=== PATIENT | male | born 1975 | race Two or more races ===

== ENCOUNTER 2024-11-02 10:00 | Outpatient (RCR) | payer OTHER, MEDICAID, SELFPAY ==
--- NOTE | 2024-10-25 15:27 | PT.OIERPT ---
PT OP Initial Eval Patient Information Outpatient Physical Therapy Treatment Date: 10/25/24 Visit Reasons: Left knee pain Medical Diagnosis: Left Knee Pain Treatment Dx #1: Left Knee Pain Start of Care: 10/25/24 Date of Onset: 1 month ago Smoking Status Smoking Status: Never smoker Initial Assessment Subjective: Pt is a 49 y/o male reports of left medial knee pain (09/29) with clicking and popping after he started working out again ~ 1 month ago. Pt was running and heard a pop in his knee and it swell instantly. Xray negative no MRI has been done. Pt has limitation with squatting, kneeling, running, squatting, working out, work duties, and performing recreational activities. Objective: Left Knee AROM: 0 deg to 140 deg with pain Left Knee MMTs: grossly 4-/5 Left Hip MMTs: grossly 3+/5 Special Test (+) Ricardo (+) Thessaly Palpation: TTP medial joint line Assessment: Pt demonstrate left knee pain consistent with possible meniscal involvement leading to difficulty with ADLs. Pt will attempt physical therapy if pain persist Pt will be refer back to provider for further consultation. 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 Goals 1) Increase left knee AROM WNL in 6 wks to be abnle to perform work out routine 2) Increase left knee MMTs grossly to 4/5 in 6 wks to be able to perform squatting activities 3) Increase left hip MMTs grossly to 4-/5 in 6 wks to be able to perform recreational activities 4) Decrease knee pain to 2/10 in 6 wks to be able to perform stand more than 30 mins 5) Indep with HEP Treatment Plan 1) Manual Therapy 2) Therapeutic Activities 3) Therapeutic Exercises 4) Modalities (ice, heat) 5) Balance Training Frequency and Duration: 2 x wk for 6 wks Certification Dates: 10/25/24 to 01/25/25 Procedure Charges OP PT Eval Mod Complex 30 minutes: Yes
--- NOTE | 2024-11-02 10:28 | PT.ODAYNRPT ---
PT Outpatient Daily Note OP Daily Note Outpatient Physical Therapy Treatment Date: 11/02/24 Visit Reasons: Left knee pain Subjective: Pt reports L knee is doing better since initial injury but notices pain is worse when getting up from sitting. Objective: Please see flow sheet for ther ex list. Assessment: Interventions completed with minimal pain, applied. cold pack at end of session. Plan: Continue with POC, assess response to treatment. Length of Time (minutes) of Treatment: 30 Minutes Procedure Charges Therapeutic Exercise 30 minutes: Yes
== END 2024-11-20 23:59 | disposition home or self-care (01) ==
LOC: CPTX 10:00
PROVIDERS: PCP Physician Assistant; Referring Provider Physician Assistant; Visit Provider Physician Assistant
DX: M25.562 Pain in left knee (principal)
CPT/HCPCS: 97110; 97162